=== PATIENT | male | born 1985 | race Caucasian/White ===

== ENCOUNTER 2021-04-16 18:02 | Emergency (ER) | payer OTHER ==
[2021-04-16 18:34] LABS: BASOPHIL 1.1 % (0-2); EOSINOPHIL 3.1 % (0-5); HCT 42.2 % (42.0-52.0); HGB 14.5 g/dl (13.2-18.0); LYMPHOCYTE 34.2 % (15-48); MCH 31.5 pg (25.0-31.0); MCHC 34.4 g/dL (32.0-36.0); MCV 91.5 fL (78.0-100.0); MONOCYTE 10.5 % (0-12); MPV 8.7 fL (6.0-9.5); NEUTROPHIL 50.9 % (41-80); NRBC 0; PLT 263 K/uL (150-400); RBC 4.61 M/uL (4.70-6.00); RDW 12.5 % (11.5-14.0); WBC 6.1 K/uL (4.0-10.5)
[2021-04-16 18:51] LABS: BUN/CREAT RATIO (CALC) 10.8 RATIO; CREATININE 1.11 mg/dL (0.67-1.17)
[2021-04-16 19:33] LABS: BILIRUBIN NEGATIVE (NEGATIVE); BLOOD NEGATIVE Ery/uL (NEGATIVE); CLARITY HAZY (CLEAR); COLOR YELLOW (YELLOW); GLUCOSE (U) NORMAL (NORMAL); LEUKOCYTES NEGATIVE Leu/uL (NEGATIVE); NITRITE NEGATIVE (NEGATIVE); PROTEIN NEGATIVE (NEGATIVE); SPECIFIC GRAVITY >=1.030 (1.001-1.030); UROBILINOGEN 0.2 mg/dL (0.2-1.0); pH 5.5 (5.0-9.0)
[2021-04-16 19:37] LABS: AMPHETAMINES POSITIVE (NEGATIVE); BARBITURATES NEGATIVE (NEGATIVE); ECSTASY (MDMA) POSITIVE (NEGATIVE); METHADONE NEGATIVE (NEGATIVE); OPIATES POSITIVE (NEGATIVE); OXYCODONE NEGATIVE (NEGATIVE)
[2021-04-16 19:38] LABS: MARIJUANA (THC) NEGATIVE (NEGATIVE)
== END 2021-04-16 20:01 | disposition home or self-care (01) ==
LOC: FER 18:02
PROVIDERS: Nurse Practitioner Family
DX: S00.91XA Abrasion of unspecified part of head, initial encounter (principal); F11.90 Opioid use, unspecified, uncomplicated; F15.90 Other stimulant use, unspecified, uncomplicated; F17.210 Nicotine dependence, cigarettes, uncomplicated; V89.2XXA Person injured in unspecified motor-vehicle accident, traffic, initial encounter
CPT/HCPCS: 36415; 70450; 72125; 80048; 80305; 81003; 85025